=== PATIENT | female | born 1950 | race Caucasian/White ===

== ENCOUNTER 2022-10-13 07:28 | Day surgery (SDC) | payer MEDICARE, SELFPAY ==
--- NOTE | 2022-10-12 14:09 | P.CONAN_ITS ---
Documented by User: Hanna Jose NP 10/12/22 14:10 HPI - Anesthesia Eval Consult details Narrative: 72yo F for Colonoscopy [facility] Past Medical History Medical History (Updated 10/12/22 @ 14:07 by Abby Jacobson RN) Acne rosacea Breast CA IBS (irritable bowel syndrome) Surgical History Surgical History (Updated 10/12/22 @ 14:07 by Abby Jacobson RN) H/O colonoscopy History of breast biopsy Hx of cholecystectomy Hx of tonsillectomy Social History Social History Advance Directives: No Advance Directives Information Provided: Yes Meds Allergies Allergy/AdvReac Type Severity Reaction Status Date / Time No Known Allergies Allergy Unverified 10/10/22 14:15 Home Medications Medication Instructions Recorded Confirmed Last Taken Type anastrozole 1 mg tablet 1 mg PO DAILY 10/12/22 10/12/22 Unknown History Exam Exam Date and Time: October 12, 2022 1409 Assessment and Plan Assessment Anesthesia Assessment: Chart Reviewed Documented by User: Jose Roberto Reeves MD 10/13/22 08:15 [facility] Past Medical History Medical History (Updated 10/12/22 @ 14:07 by Abby Jacobson RN) Acne rosacea Breast CA IBS (irritable bowel syndrome) Family History Family history of problems with anesthesia: No Surgical History Surgical History (Updated 10/12/22 @ 14:07 by Abby Jacobson RN) H/O colonoscopy History of breast biopsy Hx of cholecystectomy Hx of tonsillectomy History of Problems with Anesthesia: No Social History Social History Advance Directives: No Advance Directives Information Provided: Yes Meds Allergies Allergy/AdvReac Type Severity Reaction Status Date / Time No Known Allergies Allergy Unverified 10/10/22 14:15 Home Medications Medication Instructions Recorded Confirmed Last Taken Type anastrozole 1 mg tablet 1 mg PO DAILY 10/12/22 10/12/22 Unknown History Exam Airway Mallampati Class: II TM Dist: >3cm Neck ROM: Limited Heart: rrr Lungs: cta Assessment and Plan Assessment Anesthesia Assessment: Anesthesia Plan Discussed Final Anesthetic Review Family History of Problems with Anesthesia: No History of Problems with Anesthesia: No ASA Class: II Final Preanesthetic Review: No Changes in Pt Med Stat, Meds/Allgs Chart Reviewed, Consent Obtained/Reviewed and Anes Risks/Benef Reviewed Patient Risk: Intermediate Procedure Risk: Low Anesthetic Plan Anesthetic Plan: MAC: Disposition: Standard PACU
[2022-10-13 08:29] VITALS: BMI 28.7
[2022-10-13 08:40] VITALS: BP 146/69; PULSE 89; RESP 18; TEMP 36.8; O2SAT 96
--- NOTE | 2022-10-13 08:51 | HO.ANESPROP2 ---
HPI - Anesthesia Eval Consult details Narrative: [facility] Past Medical History Medical History (Updated 10/12/22 @ 14:07 by Abby Jacobson RN) Acne rosacea Breast CA IBS (irritable bowel syndrome) Family History Family history of problems with anesthesia: No Surgical History Surgical History (Updated 10/12/22 @ 14:07 by Abby Jacobson RN) H/O colonoscopy History of breast biopsy Hx of cholecystectomy Hx of tonsillectomy History of Problems with Anesthesia: No Social History Social History Patient Tobacco Use Status: Former Tobacco user Use of substances other than those prescribed or required for medical reasons: No Are you DNR?: No Advance Directives: No Advance Directives Information Provided: Yes Meds Allergies Allergy/AdvReac Type Severity Reaction Status Date / Time No Known Allergies Allergy Unverified 10/10/22 14:15 Active Medications: Current Medications Lactated Ringer's (Lr) 1,000 mls @ 100 mls/hr IVCONT .Q10H RUFINO Sodium Biphosphate/Sodium Phosphate (Sodium Phosphate,Avery-Dibasic 133 Ml Enema) 133 ml AK ONCE PRN PRN Reason: Poor Colonoscopy Prep Results Home Medications Medication Instructions Recorded Confirmed Last Taken Type anastrozole 1 mg tablet 1 mg PO DAILY 10/12/22 10/12/22 Unknown History Exam Exam Date and Time: October 13, 2022 0851 Height,Weight and Vital Signs: Height 5 ft 4.5 in Weight 77.111 kg Last Vital Signs Temp 98.2 F 10/13/22 08:40 Pulse 89 10/13/22 08:40 Resp 18 10/13/22 08:40 BP 146/69 H 10/13/22 08:40 Pulse Ox 96 10/13/22 08:40 O2 Del Method Room Air 10/13/22 08:40 Airway TM Dist: >3cm Neck ROM: Full Loose/Missing/Broken Teeth: No Heart: rr Lungs: cts Assessment and Plan Assessment Anesthesia Assessment: Anesthesia Plan Discussed Final Anesthetic Review Family History of Problems with Anesthesia: No History of Problems with Anesthesia: No ASA Class: II Final Preanesthetic Review: No Changes in Pt Med Stat, Meds/Allgs Chart Reviewed, Consent Obtained/Reviewed and Anes Risks/Benef Reviewed Patient Risk: Low Procedure Risk: Low Anesthetic Plan Anesthetic Plan: MAC: Disposition: Standard PACU
[2022-10-13] MEDS: Lactated Ringers 1,000 ML 100 ML IVCONT (09:07)
[2022-10-13 10:20] VITALS: BP 99/56; PULSE 73; RESP 16; TEMP 36.1; O2SAT 93
--- NOTE | 2022-10-13 10:26 | P.BOP_ITS ---
Brief Operative Note Date of Service: 10/13/22 Pre-op diagnosis: Screening Post-op diagnosis: other (Colon polyps) Procedure: Colonoscopy to the cecum and TI with hot snare polypectomy x 3, and cold snare polypectomy x 1. Surgeon: Stephan Peña Anesthesia: MAC Was an Proposal Editor used for this Procedure?: No Estimated blood loss (mL): 2.0 Pathology: other (A. Ascending colon polyps B. Transverse colon polyps) Condition: stable Disposition: PACU
[2022-10-13 10:35] VITALS: BP 117/54; PULSE 64; RESP 16; TEMP 36.1; O2SAT 98
--- NOTE | 2022-10-13 11:52 | OP_ITS ---
DATE OF SERVICE: 10/13/2022 SURGEON: Stephan Peña MD INDICATIONS: The patient presents for evaluation of colorectal cancer screening. Full consent has been obtained from her for this, including risks of bleeding and perforation. PREOPERATIVE DIAGNOSIS: Colorectal cancer screening. POSTOPERATIVE DIAGNOSIS: PROCEDURE PERFORMED: Colonoscopy to the cecum and terminal ileum with hot snare polypectomy x 3 and cold snare polypectomy x 1. ESTIMATED BLOOD LOSS: COMPLICATIONS: ANESTHESIA: Monitored anesthesia care. ASSISTANTS: SPECIMENS: POSTOPERATIVE DIAGNOSES: Colorectal cancer screening, colon polyps, diverticulosis, and internal hemorrhoids. DESCRIPTION OF PROCEDURE: The patient was placed in the left lateral decubitus position. The digital rectal exam revealed no abnormalities. The Olympus video pediatric colonoscope was entered into the rectum advanced easily to the cecum. Once in the cecum I did identify normal-appearing cecal pouch with appendiceal orifice and a normal-appearing ileocecal valve. The terminal ileum was cannulated and appeared normal. The scope was withdrawn back in the colon. The entire cecum and ileocecal valve appeared normal. The scope was slowly withdrawn assessing all mucosal surfaces carefully. Preparation was excellent. In the ascending colon were 2 approximately 10 mm grossly adenomatous polyps, which were both snared with hot snare polypectomy and removed. Both were recovered by suction. The polypectomy sites appeared clean, without any sign of residual polyp nor bleeding. In the transverse colon was an approximately 4 mm grossly adenomatous polyp, which was removed by cold snare polypectomy and recovered by suction. The polypectomy site appeared clean, without any sign of residual polyp nor significant bleeding. Also, in the transverse colon was an approximately 10 to 12 mm polyp, which was removed by hot snare polypectomy and recovered by suction. The polypectomy site appeared clean, without any sign of residual polyp nor bleeding. I did not visualize any other polyps, colitis, nor angiodysplasia. There was a mild amount of sigmoid diverticulosis. In the rectum, scope was retroflexed visualizing internal hemorrhoids, but no other pathology. The rectal mucosa appeared normal. The scope was straightened and withdrawn from the patient. She tolerated the procedure well and was returned to the recovery area in stable condition. IMPRESSION: 1. Colon polyps. 2. Diverticulosis. 3. Internal hemorrhoids. PLAN: The results of the pathology will be checked. I would recommend a repeat colonoscopy in 5 years for further surveillance. She was advised not to use any aspirin or NSAIDs for 1 week. Stephan Peña MD RMCammy/JEFFREY / [id number] LETHA
== END 2022-10-13 11:02 | disposition home or self-care (01) ==
PROVIDERS: PCP Internal Medicine; Visit Provider Internal Medicine
PROC: 0DJD8ZZ Inspection of Lower Intestinal Tract, Via Natural or Artificial Opening Endoscopic (ICD-10-PCS; CPT 45378; principal; 2022-10-13 08:30)
DX: Z12.11 Encounter for screening for malignant neoplasm of colon (principal); Z86.010 Personal history of colon polyps; D12.2 Benign neoplasm of ascending colon; D12.3 Benign neoplasm of transverse colon; K57.30 Diverticulosis of large intestine without perforation or abscess without bleeding; K64.8 Other hemorrhoids; C50.919 Malignant neoplasm of unspecified site of unspecified female breast; Z79.811 Long term (current) use of aromatase inhibitors; K58.9 Irritable bowel syndrome, unspecified; L71.9 Rosacea, unspecified; Z90.49 Acquired absence of other specified parts of digestive tract; Z98.890 Other specified postprocedural states; Z87.891 Personal history of nicotine dependence
CPT/HCPCS: 45385; 88305